=== PATIENT | male | born 1980 | race Caucasian/White ===

== ENCOUNTER 2017-04-08 19:57 | Emergency (ER) | payer OTHER ==
[~2017-04-08] VITALS: Ht 182.9 cm; Wt 158.3 kg
[~2017-04-08 19:57] MED LIST: ANALGESIC325 MG PO; ENDOCET 5-3251 EACH PO; IMODIUM A-D2 MG PO; NOHOMEMEDS; PROMETHAZINE HC25 M1 PO; Percocet 5/325,Endoc PO
[2017-04-08 21:32] LABS: BASOPHIL (%) 0.1 % (0-1); EOSINOPHIL (%) 2.4 % (0-5); EOSINOPHIL COUNT 0.2 K/uL (0-0.3); HEMATOCRIT 40.1 % (38.0-50.0); HEMOGLOBIN 13.9 G/DL (12.5-16.6); IMMATURE GRANULOCYTE (%) 0.5 % (0.0-0.7); LYMPHOCYTE (%) 6.8 % (15-42); LYMPHOCYTE COUNT 0.5 K/uL (1.0-2.8); MCH 28.8 PG (29.0-34.0); MCHC 34.7 G/DL (30.0-36.0); MONOCYTE (%) 2.6 % (3-12); MONOCYTE COUNT 0.2 K/uL (0-0.8); NEUTROPHIL (%) 87.6 % (45-76); NEUTROPHIL COUNT 6.5 K/uL (1.8-6.4); PLATELET COUNT 211 K/uL (156-360); RBC DIS.WIDTH-CV 12.9 % (11.8-14.6); RBC DIS.WIDTH-SD 38.8 % (39-53); RED BLOOD COUNT 4.83 M/uL (4.00-5.50); WHITE BLOOD COUNT 7.4 K/uL (4.1-10.2)
[2017-04-08 22:02] LABS: CHLORIDE 99 MEQ/L (99-109); POTASSIUM 3.8 MEQ/L (3.7-5.4); SODIUM 133 MEQ/L (136-147)
[2017-04-08 22:08] LABS: GFR ESTIMATE (CALCULATED) > 59 mL/min/ (58.99-99999); GLUCOSE 116 mg/dL (70-99); UREA NITROGEN (BUN) 12 mg/dL (9-23)
[2017-04-08 23:43] LABS: APPEARANCE SL.HAZY ((CLEAR)); BILIRUBIN NEGATIVE; BLOOD NEGATIVE; COLOR YELLOW ((YELLOW)); GLUCOSE (STRIP) NEGATIVE; KETONES NEGATIVE; LEUKOCYTES NEGATIVE; NITRITE NEGATIVE; PROTEIN (STRIP) 30; SPECIFIC GRAVITY 1.021 (1.000-1.030); UROBILINOGEN 0.2 MG/DL (0.2-1.0)
[2017-04-09 00:02] LABS: BACTERIA RARE /HPF; EPITHELIAL CELLS NONE SEEN /HPF; MUCUS 2+ /LPF; RED BLOOD CELLS 0-5 /HPF (0-5); WHITE BLOOD CELLS 0-5 /HPF (0-5)
[2017-04-09] MEDS ORDERED: ZANTAC150 MG PO (02:20)
[2017-04-09] MEDS ORDERED: BENADRYL50 MG PO (02:20)
[2017-04-09] MEDS ORDERED: AUGMENTIN500 MG PO (02:21)
[2017-04-09] MEDS ORDERED: MOTRIN800 MG PO (02:29)
[2017-04-09 02:44] VITALS: BP 127/83
[2017-04-09 09:21] LABS: LYME DISEASE SEROLOGY SCREEN NEGATIVE (NEGATIVE)
== END 2017-04-09 02:45 | disposition home or self-care (01) ==
LOC: EME 19:57
PROVIDERS: Physician Assistant
PROC: 0H98XZZ Drainage of Buttock Skin, External Approach (ICD-10-PCS; principal; 2017-04-08)
DX: L05.01 Pilonidal cyst with abscess (principal); T78.40XA Allergy, unspecified, initial encounter
CPT/HCPCS: 80048; 81003; 83605; 85025; 86618; 86757 90; 87040; 87205; 99281; 99285; J1100; J1200; J1885; J7030; S0028

== ENCOUNTER 2017-04-12 00:06 | Emergency (ER) | payer OTHER ==
[~2017-04-12] VITALS: Ht 182.9 cm; Wt 157.4 kg
[~2017-04-12 00:06] MED LIST changes: +AUGMENTIN500 MG PO; +BENADRYL50 MG PO; +MOTRIN800 MG PO; +ZANTAC150 MG PO
[2017-04-12 00:34] VITALS: BP 122/90
== END 2017-04-12 00:36 | disposition home or self-care (01) ==
LOC: EME 00:06
DX: L02.212 Cutaneous abscess of back [any part, except buttock and flank] (principal)
CPT/HCPCS: 99281; 99284